=== PATIENT | female | born 1955 | race Caucasian/White ===

== ENCOUNTER 2017-08-07 13:06 | Emergency (ER) | payer BC ==
[~2017-08-07] VITALS: Ht 152.4 cm; Wt 49.0 kg
[2017-08-07 13:13] VITALS: BP 141/81
[2017-08-07] MEDS ORDERED: CIPROFLOXACIN 500 MG TABLET ONE (14:44)
[2017-08-07] MEDS: CIPROFLOXACIN 500 MG TABLET PO ONE (14:57)
== END 2017-08-07 15:48 | disposition home or self-care (01) ==
LOC: ED 14:50
DX: R51 Headache (principal)
CPT/HCPCS: 99282